=== PATIENT | female | born 1995 | race Caucasian/White ===

== ENCOUNTER 2022-08-20 08:29 | Emergency (ER) | payer SELFPAY ==
[~2022-08-20] VITALS: Ht 152.4 cm; Wt 56.7 kg
[2022-08-20 08:35] VITALS: BP_SYST 121
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
--- NOTE | 2022-08-20 09:00 | NUR ---
Dr Gupta evaluating patient at bedside
[2022-08-20] MEDS ORDERED: IBUP-1969 PO (09:48)
[2022-08-20] MEDS ORDERED: HYDR-3917 PO (09:48)
[2022-08-20 10:13] VITALS: BP_SYST 121
--- NOTE | 2022-08-20 10:17 | NUR ---
Patient given written and verbal discharge instructions and verbalizes understanding. ER MD discussed with patient the results and treatment provided. Patient in stable condition. ID arm band removed. Rx of Bimble/Ibuprofen given. Patient educated on pain management and to follow up with PMD. Pain Scale 3/10. Opportunity for questions provided and answered. Medication side effect fact sheet provided.
== END 2022-08-20 10:13 | disposition home or self-care (01) ==
LOC: SED 08:29
DX: S63.91XA Sprain of unspecified part of right wrist and hand, initial encounter (principal); Z79.899 Other long term (current) drug therapy; W22.8XXA Striking against or struck by other objects, initial encounter; Y93.89 Activity, other specified; Y92.89 Other specified places as the place of occurrence of the external cause; Y99.8 Other external cause status
CPT/HCPCS: 99283